=== PATIENT | female | born 1950 | race Caucasian/White ===

== ENCOUNTER 2017-04-08 15:22 | Emergency (ER) | payer SELFPAY ==
[~2017-04-08] VITALS: Ht 160 cm; Wt 68.0 kg
[~2017-04-08 15:22] MED LIST: BACT800T5 PO; CEPH500C3 PO; HYDR-3533 PO; IBUP800 PO; LEVO.075 PO
[2017-04-08 15:24] VITALS: BP 141/86; PULSE 85; RESP 18; TEMP 98; O2SAT 96
--- NOTE | 2017-04-08 15:55 | RADRPT ---
EXAM DATE/TIME: 04/08/2017 15:40 [place] COMPARISON: No previous studies available for comparison. INDICATIONS : Left wrist pain post fall 3 days ago MEDICAL HISTORY : None. SURGICAL HISTORY : None. ENCOUNTER: Initial ACUITY: 3 days PAIN SCORE: 8/10 LOCATION: Left lateral wrist FINDINGS: Three view examination of the left wrist demonstrates no acute fracture or malalignment. There is sof t tissue prominence over the dorsum of the wrist. The carpal bones are in normal alignment. The join t spaces are maintained. Bony mineralization is normal. CONCLUSION: Soft tissue prominence over the dorsum of the wrist with no acute fracture. Bharat Kee MD on April 08, 2017 at 15:47 Board Certified Radiologist. This report was verified electronically.
--- NOTE | 2017-04-08 18:42 | PD ---
HPI Chief Complaint: Musculoskeletal Complaint Time Seen by Provider: 18:32 Travel History International Travel<30 days: No Contact w/Intl Traveler<30days: No Traveled to known affect area: No History of Present Illness HPI This is a 66-year-old female here with left wrist pain and swelling 5 days. She reports she had a mechanical trip and fall falling back onto an outstretched hand. She has had pain and swelling in the wrist since. Pain is localized over the distal radius and scaphoid region. Severity is moderate. Symptoms have failed to improve with a wrist splint she bought from the store. She denies paresthesias or weakness in the extremity. Her beta by movement and mildly relieved with rest. 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 Reported Meds & Prescriptions Reported Meds & Active Scripts Active Reported Synthroid (Levothyroxine Sodium) 75 Mcg Tab 75 Mcg PO DAILY Review of Systems Except as stated in HPI: all other systems reviewed are Neg Physical Exam Narrative GENERAL: Alert and well-appearing 66-year-old female SKIN: Warm and dry. HEAD: Normocephalic. Atraumatic EYES: No injection or drainage. NECK: Supple MUSCULOSKELETAL: No cyanosis. Right upper extremity: Notable pain and swelling to the left wrist. Tenderness over the distal radius and scaphoid region. Limited flexion and extension due to pain. 2+ radial pulse. Normal sensation. Brisk cap refill. Data Data Last Documented VS Vital Signs Date Time Temp Pulse Resp B/P (MAP) Pulse Ox O2 Delivery O2 Flow Rate FiO2 04/08/17 15:24 98.0 85 18 141/86 (104) 96 Room Air Orders Orders Wrist, Complete ([id number]) (04/08/17 ) Splinting (04/08/17 ) [facility] Medical Decision Making Medical Screen Exam Complete: Yes Emergency Medical Condition: Yes Differential Diagnosis Distal radius fracture, scaphoid fracture, wrist sprain Narrative Course This is a 66-year-old female with left wrist pain and swelling after a mechanical fall onto an outstretched hand. The extremity is neurovascularly intact. The patient has notable swelling and tenderness. She points to the scaphoid region as the source of her pain. X-ray is negative for fracture. Patient will be splinted in a volar wrist splint with suspected occult fracture versus wrist sprain. She is instructed to follow-up with her primary doctor for recheck in one week Diagnosis Primary Impression: Left wrist sprain Qualified Codes: S63.502A - Unspecified sprain of left wrist, initial encounter Referrals: Orthopedist Primary Care Physician Additional Instructions: Keep the splint in place until follow-up. Ice and elevate the extremity. Continue your ibuprofen as needed for pain. Disposition: 01 DISCHARGE HOME Condition: Stable Kayla Dasilva Apr 08, 2017 18:42
== END 2017-04-08 19:08 | disposition home or self-care (01) ==
LOC: NEPK 15:22
DX: S63.502A Unspecified sprain of left wrist, initial encounter (principal); F17.200 Nicotine dependence, unspecified, uncomplicated; W01.0XXA Fall on same level from slipping, tripping and stumbling without subsequent striking against object, initial encounter
CPT/HCPCS: 29125; 73110